=== PATIENT | female | born 1930 | race Native Hawaiian/Other Pacific Islander ===

== ENCOUNTER 2016-09-23 08:28 | Inpatient (IN) | payer OTHER ==
[~2016-09-23 08:28] MED LIST: ACET7.5T70 PO; ALBUSOL IN; ALLO300T23 PO; ASCO500T18 PO; B12-ACTIVE1 MG PO; BIOTIN5 MG PO; CALCIUM + D600 MG PO; CARDIZEM60 M1 PO; CEFT1INJ27 INJ; COZAAR25 MG PO; DENO60SO SC; DICL1GEL2 TOP; DOCU100C10 PO; FENT75DI TD; FURO40TA93 PO; GABA300C2 PO; HYDR10TA47 PO; KLOR-CON M2020 MEQ PO; LANOXIN 0.120.125 M1 PO; LOFIBRA67 MG PO; MEDROL DOSEPAK4 MG OR; MELATONIN3 M1 OR; METO5TAB38 PO; MICO2CRE VA; MULT VITAMI1 PO; NITR100C56 PO; NUCYNTA ER100 MG PO; OMEP20CA PO; OXYB5TAB56 PO; PHENELX32 PO; PLAVIX75 MG PO; Q TUSSIN DM PO; RANI150T78 PO; SERT100T PO; SPIR25TA66 PO; TRAM50TA PO; VIT D GUMMIE400 UNIT OR; WARF1TAB7 PO; WARF2TAB7 PO; WELCHOL625 MG PO; [UNRECOGNIZED DRUG - OTHER] IM
== END 2016-10-24 08:00 | disposition still patient (30) ==
LOC: PAVA 08:28
PROVIDERS: ADMIT Internal Medicine
DX: Z51.89 Encounter for other specified aftercare (principal)

== ENCOUNTER 2016-10-24 09:00 | Inpatient (IN) | payer OTHER | END 2016-11-24 08:33 | disposition still patient (30) | LOC: PAVA 09:00 | PROVIDERS: ADMIT Internal Medicine | DX: Z51.89 Encounter for other specified aftercare (principal) ==

== ENCOUNTER 2016-10-28 09:26 | Outpatient (CLI) | payer OTHER ==
[2016-10-28 10:07] LABS: PLATELET COUNT 220 K/uL (152-353)
[2016-10-28 10:20] LABS: POTASSIUM 4.8 mmol/L (3.6-5.2)
== END 2016-10-28 10:26 | disposition home or self-care (01) ==
LOC: LAB 09:26
PROVIDERS: Internal Medicine
DX: Z79.01 Long term (current) use of anticoagulants (principal); I10 Essential (primary) hypertension; E11.9 Type 2 diabetes mellitus without complications; Z51.81 Encounter for therapeutic drug level monitoring
CPT/HCPCS: 36415; 80053; 83036; 85027; 85610

== ENCOUNTER 2016-11-24 08:52 | Inpatient (IN) | payer OTHER | END 2016-12-22 08:16 | disposition still patient (30) | LOC: PAVA 08:52 | PROVIDERS: ADMIT Internal Medicine | DX: Z51.89 Encounter for other specified aftercare (principal) ==

== ENCOUNTER 2016-11-25 04:38 | Outpatient (CLI) | payer OTHER | END 2016-11-25 06:38 | disposition home or self-care (01) | LOC: LAB 04:38 | DX: Z79.899 Other long term (current) drug therapy (principal); Z51.81 Encounter for therapeutic drug level monitoring | CPT/HCPCS: 85610 ==

== ENCOUNTER 2016-12-14 15:07 | Outpatient (CLI) | payer OTHER | END 2016-12-14 23:49 | disposition home or self-care (01) | LOC: LAB 15:07 | DX: R30.9 Painful micturition, unspecified (principal); R82.5 Elevated urine levels of drugs, medicaments and biological substances | CPT/HCPCS: 81000 ==

== ENCOUNTER 2016-12-22 08:23 | Inpatient (IN) | payer OTHER | END 2017-01-22 08:01 | disposition still patient (30) | LOC: PAVA 08:23 | PROVIDERS: ADMIT Internal Medicine | DX: Z51.89 Encounter for other specified aftercare (principal) ==

== ENCOUNTER 2016-12-24 06:28 | Outpatient (CLI) | payer OTHER | END 2016-12-24 19:45 | disposition home or self-care (01) | LOC: LAB 06:28 | DX: Z79.01 Long term (current) use of anticoagulants (principal); Z51.81 Encounter for therapeutic drug level monitoring | CPT/HCPCS: 85610 ==

== ENCOUNTER 2017-01-22 09:42 | Inpatient (IN) | payer OTHER | END 2017-02-21 08:29 | disposition still patient (30) | LOC: PAVA 09:42 | PROVIDERS: ADMIT Internal Medicine | DX: Z51.89 Encounter for other specified aftercare (principal) ==

== ENCOUNTER 2017-01-28 04:52 | Outpatient (CLI) | payer OTHER ==
[2017-01-28 05:19] LABS: PLATELET COUNT 199 K/uL (152-353)
[2017-01-28 05:24] LABS: POTASSIUM 4.6 mmol/L (3.6-5.2)
== END 2017-01-28 19:05 | disposition home or self-care (01) ==
LOC: LAB 04:52
PROVIDERS: Internal Medicine
DX: E11.9 Type 2 diabetes mellitus without complications (principal); I10 Essential (primary) hypertension; R79.1 Abnormal coagulation profile
CPT/HCPCS: 80053; 83036; 85027; 85610

== ENCOUNTER 2017-02-08 14:07 | Outpatient (CLI) | payer OTHER | END 2017-02-08 19:15 | disposition home or self-care (01) | LOC: LAB 14:07 | DX: M10.9 Gout, unspecified (principal) | CPT/HCPCS: 36415; 84550 ==

== ENCOUNTER 2017-02-14 15:50 | Outpatient (CLI) | payer OTHER | END 2017-02-14 19:34 | disposition home or self-care (01) | LOC: LAB 15:50 | DX: Z16.24 Resistance to multiple antibiotics (principal) | CPT/HCPCS: 87081 ==

== ENCOUNTER 2017-02-21 08:39 | Inpatient (IN) | payer OTHER | END 2017-03-24 08:09 | disposition still patient (30) | LOC: PAVA 08:39 | PROVIDERS: ADMIT Internal Medicine | DX: Z51.89 Encounter for other specified aftercare (principal) ==

== ENCOUNTER 2017-02-21 11:35 | Outpatient (CLI) | payer OTHER | END 2017-02-21 20:01 | disposition home or self-care (01) | LOC: LAB 11:35 | DX: Z79.01 Long term (current) use of anticoagulants (principal) | CPT/HCPCS: 36415; 85610 ==

== ENCOUNTER 2017-03-11 05:54 | Outpatient (CLI) | payer OTHER | END 2017-03-11 07:00 | disposition home or self-care (01) | LOC: LAB 05:54 | DX: E11.9 Type 2 diabetes mellitus without complications (principal); Z79.4 Long term (current) use of insulin | CPT/HCPCS: 84550 ==

== ENCOUNTER 2017-03-24 08:17 | Inpatient (IN) | payer OTHER | END 2017-04-23 14:56 | disposition still patient (30) | LOC: PAVA 08:17 | PROVIDERS: ADMIT Internal Medicine | DX: Z51.89 Encounter for other specified aftercare (principal) ==

== ENCOUNTER 2017-03-29 04:38 | Outpatient (CLI) | payer OTHER | END 2017-03-29 19:06 | disposition home or self-care (01) | LOC: LAB 04:38 | DX: Z79.899 Other long term (current) drug therapy (principal); Z51.81 Encounter for therapeutic drug level monitoring | CPT/HCPCS: 85610 ==

== ENCOUNTER 2017-04-23 15:03 | Inpatient (IN) | payer OTHER | END 2017-05-24 08:28 | disposition still patient (30) | LOC: PAVA 15:03 | PROVIDERS: ADMIT Internal Medicine | DX: Z51.89 Encounter for other specified aftercare (principal) ==

== ENCOUNTER 2017-04-28 08:57 | Outpatient (CLI) | payer OTHER ==
[2017-04-28 09:47] LABS: PLATELET COUNT 219 K/uL (152-353)
[2017-04-28 10:58] LABS: POTASSIUM 5.1 mmol/L (3.6-5.2)
== END 2017-04-28 17:51 | disposition home or self-care (01) ==
LOC: LAB 08:57
PROVIDERS: Internal Medicine
DX: Z79.899 Other long term (current) drug therapy (principal); E11.9 Type 2 diabetes mellitus without complications; I10 Essential (primary) hypertension; Z79.01 Long term (current) use of anticoagulants; D68.8 Other specified coagulation defects; Z51.81 Encounter for therapeutic drug level monitoring
CPT/HCPCS: 80053; 83036; 85027; 85610

== ENCOUNTER 2017-05-07 11:07 | Outpatient (CLI) | payer OTHER | END 2017-05-07 19:14 | disposition home or self-care (01) | LOC: RAD 11:07 | DX: R06.02 Shortness of breath (principal); R05 Cough ==

== ENCOUNTER 2017-05-13 06:15 | Outpatient (CLI) | payer OTHER ==
[2017-05-13 06:39] LABS: PLATELET COUNT 261 K/uL (152-353)
== END 2017-05-13 07:15 | disposition home or self-care (01) ==
LOC: LAB 06:15
PROVIDERS: Internal Medicine
DX: I10 Essential (primary) hypertension (principal)
CPT/HCPCS: 85027

== ENCOUNTER 2017-05-24 08:46 | Inpatient (IN) | payer OTHER | END 2017-06-24 08:09 | disposition still patient (30) | LOC: PAVA 08:46 | PROVIDERS: ADMIT Internal Medicine | DX: Z51.89 Encounter for other specified aftercare (principal) ==

== ENCOUNTER 2017-05-26 06:05 | Outpatient (CLI) | payer OTHER | END 2017-05-26 19:54 | disposition home or self-care (01) | LOC: LAB 06:05 | DX: Z79.01 Long term (current) use of anticoagulants (principal); Z51.81 Encounter for therapeutic drug level monitoring | CPT/HCPCS: 36415; 85610 ==

== ENCOUNTER 2017-05-31 14:35 | Outpatient (CLI) | payer OTHER | END 2017-05-31 19:34 | disposition home or self-care (01) | LOC: RAD 14:35 | DX: R05 Cough (principal) ==

== ENCOUNTER 2017-06-24 08:18 | Inpatient (IN) | payer OTHER | END 2017-07-24 09:07 | disposition still patient (30) | LOC: PAVA 08:18 | PROVIDERS: ADMIT Internal Medicine | DX: Z51.89 Encounter for other specified aftercare (principal) ==

== ENCOUNTER 2017-06-27 06:04 | Outpatient (CLI) | payer OTHER | END 2017-06-27 18:57 | disposition home or self-care (01) | LOC: LAB 06:04 | DX: Z79.899 Other long term (current) drug therapy (principal); Z51.81 Encounter for therapeutic drug level monitoring | CPT/HCPCS: 85610 ==

== ENCOUNTER 2017-07-24 09:14 | Inpatient (IN) | payer OTHER | END 2017-08-24 09:49 | disposition still patient (30) | LOC: PAVA 09:14 | PROVIDERS: ADMIT Internal Medicine ==

== ENCOUNTER 2017-07-25 06:29 | Outpatient (CLI) | payer OTHER ==
[2017-07-25 07:33] LABS: PLATELET COUNT 216 K/uL (152-353)
[2017-07-25 13:41] LABS: POTASSIUM 4.8 mmol/L (3.6-5.2)
== END 2017-07-25 07:30 | disposition home or self-care (01) ==
LOC: LAB 06:29
PROVIDERS: Internal Medicine
DX: E11.9 Type 2 diabetes mellitus without complications (principal); I10 Essential (primary) hypertension; Z79.899 Other long term (current) drug therapy; Z51.81 Encounter for therapeutic drug level monitoring
CPT/HCPCS: 36415; 80053; 80061; 83036; 85027; 85610

== ENCOUNTER 2017-08-24 10:31 | Inpatient (IN) | payer OTHER | END 2017-09-23 08:11 | disposition still patient (30) | LOC: PAVA 10:31 | PROVIDERS: ADMIT Internal Medicine ==

== ENCOUNTER 2017-08-25 05:37 | Outpatient (CLI) | payer OTHER | END 2017-08-25 06:40 | disposition home or self-care (01) | LOC: LAB 05:37 | DX: Z79.01 Long term (current) use of anticoagulants (principal); Z51.81 Encounter for therapeutic drug level monitoring | CPT/HCPCS: 85610 ==

== ENCOUNTER 2017-09-23 08:44 | Inpatient (IN) | payer OTHER | END 2017-10-24 08:25 | disposition still patient (30) | LOC: PAVA 08:44 | PROVIDERS: ADMIT Internal Medicine ==

== ENCOUNTER 2017-09-27 05:31 | Outpatient (CLI) | payer OTHER | END 2017-09-27 06:35 | disposition home or self-care (01) | LOC: LAB 05:31 | DX: Z79.899 Other long term (current) drug therapy (principal); Z79.01 Long term (current) use of anticoagulants | CPT/HCPCS: 84550; 85610 ==

== ENCOUNTER 2017-10-24 08:44 | Inpatient (IN) | payer OTHER | END 2017-11-24 08:29 | disposition still patient (30) | LOC: PAVA 08:44 | PROVIDERS: ADMIT Internal Medicine ==

== ENCOUNTER 2017-10-27 05:19 | Outpatient (CLI) | payer OTHER ==
[2017-10-27 06:17] LABS: PLATELET COUNT 198 K/uL (152-353)
[2017-10-27 06:51] LABS: POTASSIUM 4.5 mmol/L (3.6-5.2)
== END 2017-10-27 21:42 | disposition home or self-care (01) ==
LOC: LAB 05:19
PROVIDERS: Internal Medicine
DX: R79.1 Abnormal coagulation profile (principal); R79.89 Other specified abnormal findings of blood chemistry
CPT/HCPCS: 80053; 83036; 85027; 85610

== ENCOUNTER 2017-11-24 09:13 | Inpatient (IN) | payer OTHER | END 2017-12-22 08:06 | disposition still patient (30) | LOC: PAVA 09:13 | PROVIDERS: ADMIT Internal Medicine ==

== ENCOUNTER 2017-11-28 09:56 | Outpatient (CLI) | payer OTHER | END 2017-11-28 20:23 | disposition home or self-care (01) | LOC: LAB 09:56 | DX: Z51.81 Encounter for therapeutic drug level monitoring (principal) | CPT/HCPCS: 36415; 85610 ==

== ENCOUNTER 2017-12-22 08:40 | Inpatient (IN) | payer OTHER | END 2018-01-22 08:00 | disposition still patient (30) | LOC: PAVA 08:40 | PROVIDERS: ADMIT Internal Medicine ==

== ENCOUNTER 2018-01-02 03:15 | Outpatient (CLI) | payer OTHER | END 2018-01-02 21:29 | disposition home or self-care (01) | LOC: LAB 03:15 | DX: Z79.01 Long term (current) use of anticoagulants (principal); Z51.81 Encounter for therapeutic drug level monitoring | CPT/HCPCS: 36415; 85610 ==

== ENCOUNTER 2018-01-22 09:00 | Inpatient (IN) | payer OTHER ==
[2018-02-13 06:31] LABS: PLATELET COUNT 216 K/uL (152-353)
[2018-02-13 06:35] LABS: POTASSIUM 4.5 mmol/L (3.6-5.2)
== END 2018-02-21 08:09 | disposition still patient (30) ==
LOC: PAVA 09:00
PROVIDERS: ADMIT Internal Medicine
CPT/HCPCS: 36415; 80053; 80202; 85027

== ENCOUNTER 2018-01-24 10:13 | Outpatient (CLI) | payer OTHER ==
[2018-01-24 10:42] LABS: PLATELET COUNT 260 K/uL (152-353)
[2018-01-24 10:58] LABS: POTASSIUM 4.5 mmol/L (3.6-5.2)
== END 2018-01-24 22:53 | disposition home or self-care (01) ==
LOC: LAB 10:13
PROVIDERS: Internal Medicine
DX: E11.9 Type 2 diabetes mellitus without complications (principal); I10 Essential (primary) hypertension; Z79.899 Other long term (current) drug therapy; Z51.81 Encounter for therapeutic drug level monitoring
CPT/HCPCS: 80053; 83036; 85027; 85610

== ENCOUNTER 2018-01-27 09:48 | Outpatient (CLI) | payer OTHER | END 2018-01-27 20:24 | disposition home or self-care (01) | LOC: RAD 09:48 | DX: Z13.820 Encounter for screening for osteoporosis (principal); Z78.0 Asymptomatic menopausal state ==

== ENCOUNTER 2018-02-03 07:53 | Inpatient (IN) | payer OTHER ==
[2018-02-03] VITALS (10 sets, daily range): BP systolic 124–165; BP diastolic 54–89; TEMP 97.9–98.3; Ht 165.1 cm; Wt 96.8 kg
[~2018-02-03] VITALS: Ht 165.1 cm; Wt 96.8 kg
[2018-02-03 11:28] LABS: PLATELET COUNT 273 K/uL (152-353)
[2018-02-03 14:51] LABS: POTASSIUM 4.9 mmol/L (3.6-5.2)
[2018-02-04] VITALS (11 sets, daily range): BP systolic 134–146; BP diastolic 49–98; TEMP 97.6–99.7
[2018-02-04 05:31] LABS: PLATELET COUNT 222 K/uL (152-353)
[2018-02-04 06:07] LABS: POTASSIUM 4.5 mmol/L (3.6-5.2)
[2018-02-05] VITALS (15 sets, daily range): BP systolic 105–160; BP diastolic 41–100; TEMP 98–99.7
[2018-02-05 06:18] LABS: POTASSIUM 3.7 mmol/L (3.6-5.2)
[2018-02-05 06:34] LABS: PLATELET COUNT 215 K/uL (152-353)
[2018-02-06] VITALS (14 sets, daily range): BP systolic 131–174; BP diastolic 64–97; TEMP 97.6–98.3
[2018-02-06 08:04] LABS: PLATELET COUNT 240 K/uL (152-353)
[2018-02-06 08:06] LABS: POTASSIUM 3.9 mmol/L (3.6-5.2)
[2018-02-07] VITALS (9 sets, daily range): BP systolic 137–175; BP diastolic 54–95; TEMP 97.9–98.2
[2018-02-07 06:32] LABS: POTASSIUM 3.4 mmol/L (3.6-5.2)
[2018-02-07 06:51] LABS: PLATELET COUNT 254 K/uL (152-353)
[2018-02-08] VITALS: BP 122/63; TEMP 97.6
[2018-02-08 04:00] VITALS: BP 132/82; TEMP 98.1
[2018-02-08 06:08] LABS: PLATELET COUNT 249 K/uL (152-353)
[2018-02-08 06:13] LABS: POTASSIUM 3.8 mmol/L (3.6-5.2)
[2018-02-08 08:00] VITALS: BP 175/83; TEMP 98
[2018-02-08 12:00] VITALS: BP 136/76; TEMP 97.6
[2018-02-08 19:44] VITALS: BP 184/76; TEMP 97.7
[2018-02-08 23:35] VITALS: BP 190/62; TEMP 98.2
[2018-02-09] VITALS (16 sets, daily range): BP systolic 94–175; BP diastolic 59–90; TEMP 97.5–98.9
[2018-02-09 10:19] LABS: POTASSIUM 4.1 mmol/L (3.6-5.2)
[2018-02-09 10:22] LABS: PLATELET COUNT 287 K/uL (152-353)
[2018-02-10] VITALS (28 sets, daily range): BP systolic 102–162; BP diastolic 52–94; TEMP 97.6–99.1
[2018-02-10 07:03] LABS: PLATELET COUNT 258 K/uL (152-353)
[2018-02-10 07:13] LABS: POTASSIUM 5.1 mmol/L (3.6-5.2)
[2018-02-11] VITALS (23 sets, daily range): BP systolic 13–132; BP diastolic 39–76; TEMP 97.5–99.8
[2018-02-11 04:11] LABS: PLATELET COUNT 249 K/uL (152-353)
[2018-02-11 05:02] LABS: POTASSIUM 3.8 mmol/L (3.6-5.2)
[2018-02-12] VITALS (20 sets, daily range): BP systolic 96–124; BP diastolic 41–68; TEMP 98–98.5
[2018-02-12 06:43] LABS: PLATELET COUNT 234 K/uL (152-353)
[2018-02-12 06:45] LABS: POTASSIUM 4.3 mmol/L (3.6-5.2)
[2018-02-13] VITALS (18 sets, daily range): BP systolic 102–145; BP diastolic 42–75; TEMP 98.2–99.3
[2018-02-14] VITALS (13 sets, daily range): BP systolic 92–131; BP diastolic 41–63; TEMP 97.9–98.5
== END 2018-02-14 14:00 | DRG 189 ==
LOC: LAB 07:53 → ICU 17:21 → MED/SURG 02-08 16:15 → ICU 02-09 15:10
PROVIDERS: ADMIT Internal Medicine
DX: J96.01 Acute respiratory failure with hypoxia (principal); J15.212 Pneumonia due to Methicillin resistant Staphylococcus aureus; N39.0 Urinary tract infection, site not specified; J44.0 Chronic obstructive pulmonary disease with (acute) lower respiratory infection; J44.1 Chronic obstructive pulmonary disease with (acute) exacerbation; B96.20 Unspecified Escherichia coli [E. coli] as the cause of diseases classified elsewhere; I48.91 Unspecified atrial fibrillation; I25.10 Atherosclerotic heart disease of native coronary artery without angina pectoris; E11.9 Type 2 diabetes mellitus without complications; I10 Essential (primary) hypertension; I87.8 Other specified disorders of veins
CPT/HCPCS: 36415; 36591; 36600; 51702; 80048; 80053; 80076; 80202; 81000; 82550; 82805; 83605; 83880; 84484; 85027; 85610; 85730; 87040; 87070; 87077; 87088; 87185; 87186; 87205; 93005; 94640; 94664; 94668; 94760; 96365; 96366; 96367; J0132; J0696; J1940; J1956; J2185; J3370; J3490

== ENCOUNTER 2018-02-21 08:28 | Inpatient (IN) | payer OTHER ==
[2018-03-18 17:54] LABS: PLATELET COUNT 213 K/uL (152-353)
[2018-03-18 18:29] LABS: POTASSIUM 3.8 mmol/L (3.6-5.2)
== END 2018-03-24 08:15 | disposition still patient (30) ==
LOC: PAVA 08:28
PROVIDERS: ADMIT Internal Medicine
DX: J18.9 Pneumonia, unspecified organism (principal); M62.81 Muscle weakness (generalized); R26.81 Unsteadiness on feet; J44.9 Chronic obstructive pulmonary disease, unspecified; I25.9 Chronic ischemic heart disease, unspecified; I48.91 Unspecified atrial fibrillation; E13.59 Other specified diabetes mellitus with other circulatory complications; F33.9 Major depressive disorder, recurrent, unspecified; I10 Essential (primary) hypertension; I50.9 Heart failure, unspecified
CPT/HCPCS: 36415; 80053; 81000; 85027; 85610; 87070

== ENCOUNTER 2018-02-27 03:16 | Outpatient (CLI) | payer OTHER | END 2018-02-27 18:50 | disposition home or self-care (01) | LOC: LABW 03:16 | DX: Z79.899 Other long term (current) drug therapy (principal); Z51.81 Encounter for therapeutic drug level monitoring | CPT/HCPCS: 36415; 85610 ==

== ENCOUNTER 2018-03-18 18:54 | Outpatient (CLI) | payer OTHER | END 2018-03-18 19:13 | disposition home or self-care (01) | LOC: CT 18:54 | DX: R41.82 Altered mental status, unspecified (principal); R47.81 Slurred speech ==

== ENCOUNTER 2018-03-24 08:27 | Inpatient (IN) | payer OTHER | END 2018-04-23 14:14 | disposition still patient (30) | LOC: PAVA 08:27 | PROVIDERS: ADMIT Internal Medicine ==

== ENCOUNTER 2018-03-27 04:49 | Outpatient (CLI) | payer OTHER | END 2018-03-27 21:57 | disposition home or self-care (01) | LOC: LAB 04:49 | DX: Z79.899 Other long term (current) drug therapy (principal); Z51.81 Encounter for therapeutic drug level monitoring | CPT/HCPCS: 84550; 85610 ==

== ENCOUNTER 2018-04-23 14:24 | Inpatient (IN) | payer OTHER | END 2018-05-24 08:00 | disposition still patient (30) | LOC: PAVA 14:24 | PROVIDERS: ADMIT Internal Medicine ==

== ENCOUNTER 2018-04-27 13:09 | Outpatient (CLI) | payer OTHER ==
[2018-04-27 13:37] LABS: PLATELET COUNT 222 K/uL (152-353)
[2018-04-27 14:23] LABS: POTASSIUM 4.5 mmol/L (3.6-5.2)
== END 2018-04-27 19:40 | disposition home or self-care (01) ==
LOC: LAB 13:09
PROVIDERS: Internal Medicine
DX: E11.9 Type 2 diabetes mellitus without complications (principal); Z79.899 Other long term (current) drug therapy; Z51.81 Encounter for therapeutic drug level monitoring
CPT/HCPCS: 36415; 80053; 83036; 85027; 85610

== ENCOUNTER 2018-05-12 04:51 | Outpatient (CLI) | payer OTHER | END 2018-05-12 22:26 | disposition home or self-care (01) | LOC: LAB 04:51 | DX: R79.1 Abnormal coagulation profile (principal) | CPT/HCPCS: 85610 ==

== ENCOUNTER 2018-05-24 09:00 | Inpatient (IN) | payer OTHER | END 2018-06-24 09:55 | disposition still patient (30) | LOC: PAVA 09:00 | PROVIDERS: ADMIT Internal Medicine ==

== ENCOUNTER 2018-05-26 03:49 | Outpatient (CLI) | payer OTHER | END 2018-05-26 19:12 | disposition home or self-care (01) | LOC: LAB 03:49 | DX: Z79.899 Other long term (current) drug therapy (principal); Z79.01 Long term (current) use of anticoagulants | CPT/HCPCS: 85610 ==

== ENCOUNTER 2018-06-21 13:18 | Inpatient (IN) | payer OTHER ==
[~2018-06-21] VITALS: Ht 165.1 cm; Wt 112.5 kg
[2018-06-21 13:56] LABS: PLATELET COUNT 294 K/uL (152-353)
[2018-06-21 14:05] LABS: POTASSIUM 4.8 mmol/L (3.6-5.2)
[2018-06-21 19:33] VITALS: BP 180/57; TEMP 98.1; Ht 165.1 cm; Wt 112.5 kg
[2018-06-21 20:00] VITALS: BP 132/75; TEMP 98
[2018-06-22] VITALS: BP 138/56; TEMP 98.1
[2018-06-22 04:00] VITALS: BP 161/71; TEMP 98.1
[2018-06-22 08:00] VITALS: BP 163/75; TEMP 98.4
[2018-06-22 12:00] VITALS: BP 145/82; TEMP 98.6
[2018-06-22 16:00] VITALS: BP 156/89; TEMP 98.1
[2018-06-22 20:00] VITALS: BP 147/66; TEMP 96.6
[2018-06-23] VITALS: BP 132/80; TEMP 96.1
[2018-06-23 03:42] VITALS: BP 130/50; TEMP 96.5
[2018-06-23 05:50] LABS: PLATELET COUNT 296 K/uL (152-353)
[2018-06-23 08:00] VITALS: BP 171/101; TEMP 97.5
[2018-06-23 12:00] VITALS: BP 135/50; TEMP 98
[2018-06-23 16:00] VITALS: BP 108/50; TEMP 97.6
[2018-06-23 20:00] VITALS: BP 88/40; TEMP 98.8
[2018-06-24] VITALS: BP 106/59; TEMP 98.2
[2018-06-24 04:00] VITALS: BP 105/40; TEMP 97.9
[2018-06-24 07:58] VITALS: BP 125/52; TEMP 97.6
[2018-06-24 12:04] VITALS: BP 118/47; TEMP 98.2
[2018-06-24 16:00] VITALS: BP 104/50; TEMP 97.5
[2018-06-24 20:03] VITALS: BP 126/60; TEMP 98.1
[2018-06-25] VITALS: BP 108/61; TEMP 98.1
[2018-06-25 04:00] VITALS: BP 130/55; TEMP 97.8
[2018-06-25 08:01] VITALS: BP 125/58; TEMP 97.7
[2018-06-25 09:44] LABS: PLATELET COUNT 235 K/uL (152-353)
[2018-06-25 09:51] LABS: POTASSIUM 4.9 mmol/L (3.6-5.2)
[2018-06-25 12:00] VITALS: BP 122/54; TEMP 98.2
[2018-06-25 15:45] VITALS: BP 142/69; TEMP 98
[2018-06-25 20:04] VITALS: BP 121/62; TEMP 98.1
[2018-06-26 00:27] VITALS: BP 125/55; TEMP 97.7
[2018-06-26 04:00] VITALS: BP 116/44; TEMP 97.7
[2018-06-26 08:06] VITALS: BP 137/54; TEMP 97.8
== END 2018-06-26 11:00 | DRG 193 ==
LOC: LABW 13:18 → MED/SURG 17:28
PROVIDERS: ADMIT Internal Medicine
DX: J18.8 Other pneumonia, unspecified organism (principal); J96.01 Acute respiratory failure with hypoxia; N39.0 Urinary tract infection, site not specified; J44.0 Chronic obstructive pulmonary disease with (acute) lower respiratory infection; J44.1 Chronic obstructive pulmonary disease with (acute) exacerbation; I25.10 Atherosclerotic heart disease of native coronary artery without angina pectoris; I10 Essential (primary) hypertension; M81.8 Other osteoporosis without current pathological fracture; E11.9 Type 2 diabetes mellitus without complications; G89.4 Chronic pain syndrome; R10.13 Epigastric pain; D64.89 Other specified anemias; I48.91 Unspecified atrial fibrillation; B96.20 Unspecified Escherichia coli [E. coli] as the cause of diseases classified elsewhere
CPT/HCPCS: 36415; 36591; 80048; 80053; 81000; 82550; 82948; 83880; 84484; 85027; 85610; 87040; 87077; 87086; 87088; 87186; 93005; 94640; 94664; 94760; J0696; J1940; J1956; J2185; J2543

== ENCOUNTER 2018-06-24 10:02 | Inpatient (IN) | payer OTHER | END 2018-07-20 01:00 | disposition E | LOC: PAVA 10:02 | PROVIDERS: ADMIT Internal Medicine | DX: N39.0 Urinary tract infection, site not specified (principal); D72.829 Elevated white blood cell count, unspecified; M62.81 Muscle weakness (generalized); I50.9 Heart failure, unspecified; R09.02 Hypoxemia; D64.9 Anemia, unspecified; E13.59 Other specified diabetes mellitus with other circulatory complications; F33.9 Major depressive disorder, recurrent, unspecified; I10 Essential (primary) hypertension; J44.9 Chronic obstructive pulmonary disease, unspecified | CPT/HCPCS: 36415; 85610; J2185 ==

== ENCOUNTER 2018-07-03 04:41 | Outpatient (CLI) | payer OTHER | END 2018-07-03 23:18 | disposition home or self-care (01) | LOC: LAB 04:41 | DX: R79.1 Abnormal coagulation profile (principal) | CPT/HCPCS: 85610 ==

== ENCOUNTER 2018-07-06 13:59 | Emergency (ER) | payer OTHER ==
[~2018-07-06] VITALS: Ht 165.1 cm; Wt 112.5 kg
[2018-07-06 18:10] VITALS: BP 153/57
== END 2018-07-06 18:10 | disposition short-term general hospital (02) ==
LOC: ED 13:59
DX: S72.8X1A Other fracture of right femur, initial encounter for closed fracture (principal); W05.0XXA Fall from non-moving wheelchair, initial encounter; Y92.129 Unspecified place in nursing home as the place of occurrence of the external cause
CPT/HCPCS: 99283

== ENCOUNTER 2018-07-06 18:09 | Outpatient (CLI) | payer OTHER | END 2018-07-06 19:28 | disposition short-term general hospital (02) | LOC: AMB 18:09 | DX: S72.8X1A Other fracture of right femur, initial encounter for closed fracture (principal); W05.0XXA Fall from non-moving wheelchair, initial encounter; Y92.129 Unspecified place in nursing home as the place of occurrence of the external cause; M79.604 Pain in right leg | CPT/HCPCS: A0425; A0427 ==

== ENCOUNTER 2018-07-19 13:07 | Outpatient (CLI) | payer OTHER | END 2018-07-19 21:05 | disposition home or self-care (01) | LOC: RESP 13:07 | DX: R06.89 Other abnormalities of breathing (principal); J18.9 Pneumonia, unspecified organism | CPT/HCPCS: 36600; 82805 ==